=== PATIENT | male | born 1975 | race Caucasian/White ===

== ENCOUNTER 2020-08-22 09:58 | Day surgery (SDC) | payer BC ==
--- OUTSIDE RECORDS SUMMARY | 2020-08-22 10:12 | XMS REPORT | Summary of Care ---
:1975 Author Organization [facility] Address [address], [place] [address]- Encounter HQ Charmaine_jade(FIN) [id number] Date(s): 08/14/20 - 08/14/20 [facility] [address] [place] [address]- Discharge Disposition: Home or Self Care Attending Physician: Shimon Hurtado MD Referring Physician: Shimon Hurtado MD Vital Signs No data available for this section Problem List Condition Effective Dates Status Health Status Informant Chest pain(Confirmed) Active Diarrhea1 01/25/15 Active Hyperglycemia2 01/26/15 Active Hypertension(Confirmed) Active Nausea and vomiting3 01/25/15 Active Obesity(Confirmed) Active Borderline diabetes(Confirmed) Active 1Data migrated from [employer] on 03/19/15.2Data migrated from [employer] on 03/19/15.3Data migrated from [employer] on 03/19/15. Allergies, Adverse Reactions, Alerts No Known Medication Allergies Medications No data available for this section Results No data available for this section Immunizations No data available for this section Procedures No data available for this section Social History Social History Type Response Smoking Status Never smoker; Exposure to To bacco Smoke None; Cigarette Smoking Last 365 Days No; Reg Smoking Cessation Counseling No entered on: 07/04/20 Assessment and Plan No data available for this section
--- OUTSIDE RECORDS SUMMARY | 2020-08-22 10:12 | XMS REPORT | Summary of Care ---
:1975 Author Organization [facility] Cardiology [facility] Address [address] [place] [id number] Encounter HQ Liz(FIN) [id number] Date(s): 07/04/20 - 07/04/20 [facility] Cardiology [facility] [id number] [place] [phone]- [phone] Discharge Disposition: Home or Self Care Attending Physician: Shimon Hurtado MD Vital Signs Most recent to oldest [Reference Range]: 1 Height 170.18 cm (07/04/20 10:15 AM) Blood Pressure [90-140/60-90 mmHg] 138/86 mmHg (07/04/20 10:15 AM) Peripheral Pulse Rate [60-100 bpm] 72 bpm (07/04/20 10:15 AM) Weight 107.727 kg (07/04/20 10:15 AM) Body Mass Index 37.2 m2 (07/04/20 10:15 AM) Problem List Condition Effective Dates Status Health Status Informant Chest pain(Confirmed) Active Diarrhea1 01/25/15 Active Hyperglycemia2 01/26/15 Active Hypertension(Confirmed) Active Nausea and vomiting3 01/25/15 Active Obesity(Confirmed) Active Borderline diabetes(Confirmed) Active 1Data migrated from [employer] on 03/19/15.2Data migrated from [employer] on 03/19/15.3Data migrated from [employer] on 03/19/15. Allergies, Adverse Reactions, Alerts No Known Medication Allergies Medications amLODIPine-olmesartan 10 mg-40 mg oral tablet 1 tab, PO, Daily, # 30 tab, 0 Refill(s) Start Date: 07/04/20 Status: Orderedanastrozole 1 mg oral tablet 1 mg = 1 tab, PO, Daily, 0 Refill(s) Start Date: 07/04/20 Status: Orderedmontelukast 10 mg oral tablet 10 mg = 1 tab, PO, Daily, 0 Refill(s) Start Date: 07/04/20 Status: Orderedomeprazole 40 mg oral delayed release capsule 40 mg = 1 cap, PO, Daily, 0 Refill(s) Start Date: 07/04/20 Status: OrderedSynjardy 5 mg-1000 mg oral tablet 1 tab, PO, BID, 0 Refill(s) Start Date: 07/04/20 Status: Orderedtizanidine 4 mg oral tablet 2 mg = 0.5 tab, PO, Daily, 0 Refill(s) Start Date: 07/04/20 Status: Orderedzaleplon 10 mg oral capsule 10 mg = 1 cap, PO, PRN, 0 Refill(s) Start Date: 07/04/20 Status: Ordered Results No data available for this section [...]
--- OUTSIDE RECORDS SUMMARY | 2020-08-22 10:12 | XMS REPORT | Continuity of Care Document ---
:1975 Author Organization [employer] Care Team Providers Name Role Phone [employer] Unavailable Un available Problems Problem Status Onset Classification Date Comments Sourc e Date Reported R07.9 Active 07/23/20 [facility] Other chest pain 05/11/20 05/13/2020 [facility] Viral infection, 05/11/20 05/13/2020 [facility] unspecified 20 [facility] SOB AND CHEST Active 05/11/20 MH [facility] PAIN 20 [place] N28.1 - "CYST OF Active 08/29/20 [facility] KIDNEY, 15 [facility] ACQUIRED" Land HYPERGLYCEMIA Active 01/27/20 Condition 01/26/2015 15 Medical Group Hyperglycemia Active 01/27/20 Problem 08/16/2020 Data migrated H (disorder) 15 from [employer] on [facility], 03/19/15. [facility] [place] HELICOBACTER Active 01/26/20 Condition 01/26/2015 PYLORI INFECTION 15 Med ical Group DIARRHEA Active 01/26/20 Condition 01/26/2015 15 [facility] NAUSEA AND Active 01/26/20 Condition 01/26/2015 VOMITING 15 [facility] Group Diarrhea Active 01/26/20 Problem 08/16/2020 Data migrated (finding) [facility], 03/19/15. [facility] [place] Nausea and Active 01/26/20 Problem 08/16/2020 Data migrated vomiting 15 from [facility] (disorder) [facility] on Group , 03/19/15. [facility] [place],[facility] [place] CHEST PAIN, Inactive 11/16/19 Condition 01/26/2015 PLEURITIC 15 [facility] Group ABDOMINAL PAIN, Active 11/16/19 Condition 01/26/2015 LEFT UPPER 15 Medical QUADRANT Group URINARY TRACT Inactive 10/12/19 Condition 01/26/2015 INFECTION 15 [facility] Group Chest pain Active Problem 08/16/2020 (finding) Medical Group, [place] Hypertensive Active Problem 08/16/2020 disorder, Medical systemic Group, arterial [place] (disorder) [place] Obesity Active Problem 08/16/2020 (disorder) Medical Group, [place] Prediabetes Active Problem 08/16/2020 (finding) [facility], [place] Medications Medication Details Route Status Patient Ordering Order Source Instructions Provider Date anastrozole 1 mg 1 mg = 1 Active MH oral tablet tab, PO, 020 Medical Daily, 0 Group Refill(s) montelukast 10 mg 10 mg = 1 Active MH oral tablet tab, PO, 020 Medical Daily, 0 Group Refill(s) Amlodipine 10 MG 1 tab, PO, Active MH / Olmesartan Daily, # 30 020 Medical medoxomil 40 MG tab, 0 Group Oral Tablet Refill(s) tizanidine 4 mg 2 mg = 0.5 Active MH oral tablet tab, PO, 020 Medical Daily, 0 Group Refill(s) empagliflozin 5 1 tab, PO, Active MH MG / Metformin BID, 0 020 Medical hydrochloride Refill(s) Group 1000 MG Oral Tablet [Synjardy] omeprazole 40 mg 40 mg = 1 Active MH oral delayed cap, PO, 020 Medical release capsule Daily, 0 Group Refill(s) zaleplon 10 mg 10 mg = 1 Active MH oral capsule cap, PO, 020 Medical PRN, 0 Group Refill(s) Saline Flush 0.9% Notes: Inactive MH [place] (Same as: 020 Land BD Posiflush) PROTONIX 40 MG one po Active MH TBEC daily 015 Medical Group AMOXICILLIN 500 Two tabs PO No Longer MH MG TABS BID Active 015 Medical Group CLARITHROMYCIN one tab PO No Longer MH 500 MG TABS BID for 10 Active 015 Medical days Group ESOMEPRAZOLE one cap po Active MH STRONTIUM 49.3 MG qday 015 Medica l CPDR Group RABEPRAZOLE One tab PO No Longer MH SODIUM 20 MG TBEC BID Active 015 Medica l Group NAPROXEN 500 MG one tab PO Active MH TABS BID for 5 015 Medical days, then Group one tab PO BID prn pain. Take with food. AMLODIPINE 1 tab Active MH BESYLATE 10 MG everyday 015 Medical TABS Group BENAZEPRIL HCL 40 1 tab Active MH MG TABS everyday 015 Medical Group FARXIGA 10 MG 1 tab Active MH TABS everyday 015 Medical Group TIZANIDINE HCL 4 1 tablet Active MH MG TABS twice daily 015 Medical Group CENTRUM CHEW Active MH 015 Medical Group ZYRTEC ALLERGY 10 1 capsule Active MH MG CAPS daily as 015 Medical needed for Group allergies BACTRIM DS 1 tablet No Longer MH 800-160 MG TABS twice daily Active 015 Medi ellen for Group infection DIFLUCAN 150 MG 1 tablet x No Longer MH TABS 1 dose Active 015 Medical Group AMLODIPINE 1 tab Active MH BESYLATE 10 MG everyday 015 Medical TABS Group FARXIGA 10 MG 1 tab Active MH TABS everyday 015 Medical Group Allergies, Adverse Reactions, Alerts Substance Category Reaction Severity Reaction Status Date Comments S ource type Reported No Known Assertion Drug MH Medication allergy [place] Allergies [place] Immunizations No Data Provided for This Section Results Order Name Results Value Reference Date Interpretation Comments Jane rce Range CARDIAC Troponin-I <0.02 0.00 - 0.40 05/11 [facility] [place] ENZYMES [place] CARDIAC Total CK 678 12 - 191 05/11 MH [place] ENZYMES /2019 [place] CARDIAC Troponin-I <0.02 0.00 - 0.40 05/11 [facility] [place] ENZYMES [place] CARDIAC BNP 3 <=100 pg/mL 05/11 [facility] [place] ENZYMES 2020 [place] CHEM PANEL Glucose Lvl 122 70 - 99 05/11 [facility] [place] CHEM PANEL BUN 7 7 - 22 05/11 [facility] [place] CHEM PANEL Creatinine 0.88 0.50 - 1.40 05/11 MH Sug [facility] Lvl [place] CHEM PANEL Sodium Lvl 142 135 - 145 05/11 [facility] [place] 2020 [place] CHEM PANEL Potassium Lvl 3.8 3.5 - 5.1 05/11 MH [place] CHEM PANEL Chloride Lvl 105 95 - 109 05/11 MH [place] CHEM PANEL CO2 32 24 - 32 05/11 [facility] [place] CHEM PANEL Calcium Lvl 9.3 8.5 - 10.5 08/30 MH [place] /2020 [place] CHEM PANEL Total Protein 8.3 6.4 - 8.4 08/30 MH [place] /2020 [place] CHEM PANEL Albumin Lvl 4.7 3.5 - 5.0 08/30 MH [place] /2020 [place] CHEM PANEL ALT 69 0 - 65 08/30 [facility] [place] /2020 [place] CHEM PANEL AST 40 0 - 37 08/30 [facility] [place] /2020 [place] CHEM PANEL Alk Phos 70 39 - 136 08/30 [facility] [place] /2020 [place] CHEM PANEL Bili Total 1.0 0.2 - 1.3 08/30 [facility] [place] /2020 [place] CHEM PANEL AGAP 8.8 10.0 - 20.0 08/30 [facility] [place] /2020 [place] CHEM PANEL B/C Ratio 8 6 - 25 08/30 [facility] [place] /2020 [place] CHEM PANEL Globulin 3.6 2.7 - 4.2 08/30 [facility] [place] /2020 [place] CHEM PANEL A/G Ratio 1.3 0.7 - 1.6 08/30 [facility] [place] /2020 [place] CHEM PANEL eGFR 103 08/30 Result MH [place] /2020 Comment: The [place] eGFR is calculated using the CKD-EPI formula. In most young, healthy individuals the eGFR will be >90 mL/min/1.73m2 . The eGFR declines with age. An eGFR of 60-89 may be normal in some populations, particularly the elderly, for whom the CKD-EPI formula has not been extensively validated. Use of the eGFR is not recommended in the following populations:< br/>
[place]ita viduals with unstable creatinine concentration s, including patients and those with serious co-morbid conditions.<b r/>
Patie nts with extremes in muscle mass or diet.

The data above are obtained from the National Kidney Disease Education Program (NKDEP) which additionally recommends that when the eGFR is used in patients with extremes of body mass index for purposes of drug dosing, the eGFR should be multiplied by the estimated BMI. HEMATOLOGY WBC 6.2 3.7 - 10.4 08/30 [facility] [place] /2020 [place] HEMATOLOGY RBC 5.43 4.70 - 6.10 08/30 [facility] [place] /2020 [place] HEMATOLOGY Hgb 16.8 14.0 - 18.0 08/30 [facility] [place] /2020 [place] HEMATOLOGY Hct 49.7 42.0 - 54.0 08/30 [facility] [place] /2020 [place] HEMATOLOGY MCV 91.5 80.0 - 94.0 08/30 [facility] [place] /2020 [place] HEMATOLOGY MCH 30.8 27.0 - 31.0 08/30 [facility] [place] /2020 [place] HEMATOLOGY MCHC 33.7 32.0 - 36.0 08/30 [facility] [place] /2020 [place] HEMATOLOGY RDW 13.6 11.5 - 14.5 08/30 [facility] [place] /2020 [place] HEMATOLOGY Platelet 285 133 - 450 08/30 [facility] [place] /2020 [place] HEMATOLOGY MPV 7.6 7.4 - 10.4 08/30 [facility] [place] /2020 [place] HEMATOLOGY Segs 60.4 45.0 - 75.0 08/30 [facility] [place] /2020 [place] HEMATOLOGY Lymphocytes 30.0 20.0 - 40.0 08/30 MH [place] /2020 [place] HEMATOLOGY Monocytes 7.5 2.0 - 12.0 08/30 [facility] [place] /2020 [place] HEMATOLOGY Eosinophils 0.7 0.0 - 4.0 08/30 MH [place] /2020 [place] HEMATOLOGY Basophils 1.4 0.0 - 1.0 08/30 [facility] /2020 [place] HEMATOLOGY Neutrophils # 3.7 1.5 - 8.1 08/30 MH [place] /2020 [place] HEMATOLOGY Lymphocytes # 1.9 1.0 - 5.5 08/30 [facility] [place] /2020 [place] HEMATOLOGY Monocytes # 0.5 0.0 - 0.8 08/30 MH [place] /2020 [place] HEMATOLOGY Basophils # 0.1 0.0 - 0.2 08/30 MH [place] /2020 [place] Chemistry SODIUM 139 135 - 145 01/25 MH MEQ/L Medical Group Chemistry POTASSIUM 3.6 3.5 - 5.1 01/25 ME[facility] Medical Group Chemistry CREATININE 0.8 0.5 - 1.4 01/25 Medical Group Chemistry BUN 9 7 - 22 01/25 Medical Group Chemistry BUN/CREAT 11 6 - 25 01/25 Medical Group Chemistry ALBUMIN 4.1 3.5 - 5.0 01/25 Medical Group Chemistry CALCIUM 9.2 8.5 - 10.5 01/25 Medical Group Chemistry SGPT (ALT) 41 0 - 65 01/25 Medical Group Chemistry SGOT (AST) 16 0 - 37 01/25 Medical Group Chemistry ALK PHOS 87 39 - 136 01/25 Medical Group Chemistry HGBA1C 5.9 - 5.6 01/25 Medical Group Chemistry SODIUM 139 135 - 145 01/25 MEQ[facility] Group Chemistry POTASSIUM 3.6 3.5 - 5.1 01/25 MEQ/L Medical Group Chemistry CREATININE 0.8 0.5 - 1.4 01/25 Medical Group Chemistry BUN 9 7 - 22 01/25 Medical Group Chemistry BUN/CREAT 11 6 - 25 01/25 Medical Group Chemistry ALBUMIN 4.1 3.5 - 5.0 01/25 Medical Group Chemistry CALCIUM 9.2 8.5 - 10.5 01/25 Medical Group Chemistry SGPT (ALT) 41 0 - 65 01/25 Medical Group Chemistry SGOT (AST) 16 0 - 37 01/25 Medical Group Chemistry ALK PHOS 87 39 - 136 01/25 Medical Group Chemistry SODIUM 139 135 - 145 01/25 MEQ[facility]L [facility] Group Chemistry POTASSIUM 3.6 3.5 - 5.1 01/25 MEQ/L /2014 Medical Group Chemistry CREATININE 0.8 0.5 - 1.4 01/25 Medical Group Chemistry BUN 9 7 - 22 01/25 Medical Group Chemistry BUN/CREAT 11 6 - 25 01/25 Medical Group Chemistry ALBUMIN 4.1 3.5 - 5.0 01/25 Medical Group Hematology HGB 16.4 14.0 - 18.0 01/25 Medical Group Hematology HCT 49.2 42.0 - 54.0 01/25 Medical Group Hematology PLATELETS 280 133 - 450 01/25 K/CMM /2014 Medical Group Hematology HGB 16.4 14.0 - 18.0 01/25 Medical Group Hematology HCT 49.2 42.0 - 54.0 01/25 Medical Group Hematology PLATELETS 280 133 - 450 01/25 K/CMM /2014 Medical Group Urinalysis UA COLOR YELLOW 10/14 /2014 Medical Group Urinalysis EPI CELL UR NONE - 5 10/14 SEEN /2014 Medical Group Urinalysis BACTERIA URN NONE 10/14 SEEN /2014 Medical Group Urinalysis UA COLOR YELLOW 10/14 /2014 Medical Group Urinalysis EPI CELL UR NONE - 5 10/14 MH SEEN /2014 Medical Group Urinalysis BACTERIA URN NONE 10/14 SEEN /2014 Medical Group Urinalysis UA COLOR YELLOW 10/14 /2014 Medical Group Urinalysis EPI CELL UR NONE - 5 10/14 SEEN /2014 Medical Group Urinalysis BACTERIA URN NONE 10/14 SEEN /2014 Medical Group Pathology Reports No Data Provided for This Section Diagnostic Reports Report Value Date Source Chest 1view DX EXAM: XR CHEST 1 VIEW 05/11/2020 [facility] L and DATE: 05/11/2020 15:42 CDT INDICATION: - chest pain COMPARISON: 11/25/2014 TECHNIQUE: Frontal chest radiograph FINDINGS: The lungs are clear. The cardiomediastinal silhouette is normal. There is no acute bony abnormality. IMPRESSION: No acute abnormality Chest w contrast CT STUDY: CT chest with contrast. 09/02/2015 [facility] [place] COMPARISON: None. HISTORY: R91.8 Other nonspecific abnormal find ing of lung field. TECHNIQUE: Contiguous axial images of the chest were obtained after intravenous contrast administration. Sagittal and coronal reformats were performed. DLP: 2343 mGy-cm. Contrast dose: 100ml Omnipaque. FINDINGS: Please see same day CT abdomen and pelvis for be low diaphragm findings. Mild degenerative changes of the spine are seen. No suspicious osseous lesion is seen. No enlarged lymph nodes are seen in the chest. Small calcified left hilar lymph node is seen. The thyroid gland is normal. The thoracic aorta is normal in caliber.The heart and pericardium are within normal limits. The trachea and central bron chi are clear. 4 mm calcified granuloma in the posterior left lung base is seen. The lungs are otherwise clear. No suspicious lung nodule is seen. The pleura is normal. IMPRESSION: Unremarkable CT Chest with contrast. Abdomen w/wo IV STUDY: CT abdomen with and without contrast. [facility] [place] contrast CT COMPARISON: CT dated 02/18/2015 HISTORY: N28.1 Cyst of kidney, acquired. TECHNIQUE: Contiguous axial images of the abdomen were obtained before and after intravenous contrast administration including delayed images. Enteric contrast was given. Sagittal and coronal reformats were performed. DLP: 2343 mGy-cm. Contrast dose: 100ml Omnipaque. FINDINGS: Please see same day CT chest report for above di aphragm findings. Osseous structures: Unremarkable. Liver: Several too small to characterize hypodensities are seen in the liver measuring up to 6 mm, unchanged and probably represent cysts. Gallbladder: Normal. Spleen: Normal. Stable coars e calcification is seen superior to the spleen that may represent a sequelae granulomatous process. Adrenal glands: Normal. Kidneys: Several too small t o characterize hypodensities are seen in the right kidney measuring 8 mm, unchanged and probably represent cysts. A cyst is seen in the interpolar region of left kidney measu ring 2.4 x 2.2 cm, unchanged in size. Previously noted internal septation within this cyst is not well-seen on today's study. An 11 mm exophytic cyst is seen in the interpolar region of left ki dney, unchanged. Several too small to characterize hypodensities are seen in the left kidney measuring up to 10 mm, probable cysts. Pancreas: Normal. Gastrointestinal tract: Norm al stomach. Visualized small bowel and colon are normal. Adenopathy: None. Inflammatory changes: None. IMPRESSION: Bilateral renal cysts measur ing up to 2.4 cm. Continued surveillance with renal ultrasound is advised. Consultation Notes No Data Provided for This Section Discharge Summaries No Data Provided for This Section History and Physicals No Data Provided for This Section Vital Signs Vital Sign Value Date Comments Source Systolic (mm Hg) 138 07/04/2020 Medical Group Diastolic (mm Hg) 86 07/04/2020 Medical Group Heart Rate 72 07/04/2020 Medical Grou p Height 170.18 cm 07/04/2020 Medical Gr[facility] p Weight 107.727 07/04/2020 Medical Grou p BMI Calculated 37.2 07/04/2020 Medical Gr oup Respitory Rate 10 05/11/2020 [place] Systolic (mm Hg) 143 05/11/2020 [place] Diastolic (mm Hg) 97 05/11/2020 [facility] L and Temperature Oral (F) 98 F 05/11/2020 [place] Respitory Rate 13 05/11/2020 [place] Systolic (mm Hg) 143 05/11/2020 [facility] [place] Diastolic (mm Hg) 95 05/11/2020 [place] L and Respitory Rate 10 05/11/2020 [place] Systolic (mm Hg) 156 05/11/2020 [place] Diastolic (mm Hg) 105 05/11/2020 MH [facility] L and BMI Calculated 36.26 05/11/2020 [place] Height 170.18 cm 05/11/2020 [place] BMI Calculated 36.26 05/11/2020 [place] Weight 105 05/11/2020 [place] Heart Rate 93 05/11/2020 [place] Temperature Oral (F) 97.9 F 05/11/2020 [place] Weight 232 01/25/2015 [facility] Grou p Temperature Oral (F) 97.0 F 01/25/2015 Medi ellen Group Systolic (mm Hg) 122 01/25/2015 Medical Group Diastolic (mm Hg) 87 01/25/2015 Medical Group Heart Rate 98 01/25/2015 Medical Grou p Height 67 11/15/2014 Medical Grou p Weight 228 11/15/2014 Medical Grou p Temperature Oral (F) 97.4 F 11/15/2014 Medi ell[facility] Group Systolic (mm Hg) 144 11/15/2014 Medical Group Diastolic (mm Hg) 86 11/15/2014 Medical Group Heart Rate 86 11/15/2014 Medical Grou p Weight 232 10/12/2014 Medical Grou p Height 67 10/12/2014 Medical Grou p Temperature Oral (F) 97.8 F 10/12/2014 Medi ellen Group Systolic (mm Hg) 127 10/12/2014 Medical Group Diastolic (mm Hg) 76 10/12/2014 Medical Group Heart Rate 76 10/12/2014 Medical Grou p Encounters Location Location Encounter Encounter Reason Attending ADM DC Stat us Source Details Type Number For Provider Date Date Visit [facility] [id number] [facility] 10/12 10/12 [facility] [place] Visit [facility] [employer] [facility] Office [id number] [facility] 11/15 11/15 [facility] [place] Visit 92[facility] [employer] [facility] Lab Report [id number] [facility] 11/15 11/15 [place] 6450 [facility] Medical [employer] Group - [place] [facility] Outpt Diag [id number] Karon 11/25 11/26 [facility] [place] Cesar /[place] [facility] Lab Report [id number] [facility] 01/25 01/25 [place] 5[address] [facility] Medical [employer] [facility] Lab Report [id number] [place] 01/26 01/26 [place] [address] [place], /2014 Medical Medical [employer] [facility] [id number] Naif 02/18 02/19 MH [facility] [place] /[place] [facility] Outpt Diag [id number] Naif 09/02 09/03 MH [facility] Out[facility] [place] [facility] [place] [facility] Emergency [id number] Richard Won 05/11 05/11 [place] /2019 [place] Outpatient [id number] Shimon 07/04 [facility] [place] [facility] Outpatient [id number] Shimon 07/04 07/05 Cardiology [place] /2019 Medica l [place] Group [facility] Outpatient [id number] Shimon 08/14 08/15 [place] /2019 [place] Outpatient [id number] Shimon 02/13 [facility] [place] Procedures No Data Provided for This Section Assessment and Plan No Data Provided for This Section Plan of Care No Data Provided for This Section Social History Social History Date Source Social History TypeResponse 07/04/2020 [facility] Smoking Status Never smoker; Exposure to Tobacco Smoke None; Cigarette Smoking Last 365 Days No; Reg Smoking Cessation Counseling No entered on: 07/04/20 Social History TypeResponse 07/04/2020 [place] Anastacio d Smoking Status Never smoker; Exposure to Tobacco Smoke None; Cigarette Smoking Last 365 Days No; Reg Smoking Cessation Counseling No entered on: 07/04/20 No data available for this 09/03/2015 [facility] [place] section No data available for this 02/19/2015 [facility] [place] and section Family History No Data Provided for This Section Advance Directives No Data Provided for This Section Functional Status No Data Provided for This Section
--- OUTSIDE RECORDS SUMMARY | 2020-08-22 10:13 | XMS REPORT | Continuity of Care Document ---
:1975 Author Organization [facility] t Address [address] [place] [address] Care Team Providers Name Role Phone Genesis Attending Clinician Jack Mcdaniels MD Attending Clinician Adriane Malone Attending Clinician Doctor Unassigned, Name Attending Clinician Unavailable Raheel Lua Attending Clinician Jack Harrell Attending Clinician Problems Condition Condition Condition Status Onset Resolution Last Treating Co mments Source Name Details Category Date Date Treatment Clinician Date R07.9 Diagnosis Active 2019-092020-08-14 Mem oria 1-11 08:49:00 l R07.9 00:00: [place] 00 Active 07/23/2020 [facility] [place] SOB AND Diagnosis Active 2020-05-11 Me moria CHEST PAIN 8-30 17:10:00 l SOB AND 03:00: [place] CHEST PAIN 00 Active 05/11/2020 [facility] [place] N28.1 - Diagnosis Active 2014-092015-09-02 Me moria "CYST OF 2-18 08:51:00 l KIDNEY, N28.1 - 00:01: Bro n ACQUIRED" "CYST OF 00 KIDNEY, ACQUIRED" Active 08/29/2015 [facility] [place] HYPERGLYCE Condition Active 2015-01-26 Memoria ISAI 01-26 11:10:00 l 00:00: [place] HYPERGLYCE 00 ISAI Active 01/26/2015 Condition 5 [facility] Hyperglyce Problem Active 2020-08-16 M emoria isai 01-26 23:41:18 l (disorder) 00:00: Bro n Hyperglyce 00 isai (disorder) Active 01/26/2015 Problem 08/16/2020 Data migrated from [employer] on 03/19/15. [facility] [place] HELICOBACT Condition Active 2015-01-26 Memoria ER PYLORI - 11:10:00 l INFECTION 00:00: [place] HELICOBACT 00 ER PYLORI INFECTION Active 01/25/2015 Condition 5 [facility] DIARRHEA Condition Active 2015-01-26 M emoria 01-25 11:10:00 l DIARRHEA 00:00: Bro n 00 Active 01/25/2015 Condition [facility] NAUSEA AND Condition Active 2015-01-26 Memoria VOMITING 01-25 11:10:00 l NAUSEA 00:00: [place] AND 00 VOMITING Active 01/25/2015 Condition [facility] Diarrhea Problem Active 2020-08-16 Mem oria (finding) 01-25 23:41:18 l Diarrhea 00:00: Bro n (finding) 00 Active 01/25/2015 Problem 08/16/2020 Data migrated from [employer] on 03/19/15. [facility] [place] Nausea and Problem Active 2020-08-16 M emoria vomiting 01-25 23:41:18 l (disorder) Nausea 00:00: Herm douglas and 00 vomiting (disorder) Active 01/25/2015 Problem 08/16/2020 Data migrated from [employer] on 03/19/15. [facility] [place] ABDOMINAL Condition Active 2015-01-26 Memoria PAIN, LEFT 3-06 11:10:00 l UPPER 00:00: [place] QUADRANT ABDOMINAL 00 PAIN, LEFT UPPER QUADRANT Active 11/15/2014 Condition 5 [facility] Chest pain Problem Active 2020-08-16 M emoria (finding) 23:41:18 l Chest [place] pain (finding) Active Problem 08/16/2020 [facility] [place] Hypertensi Problem Active 2020-08-16 M emoria ve 23:41:18 l disorder, [place] systemic Hypertensi arterial ve (disorder) disorder, systemic arterial (disorder) Active Problem 08/16/2020 [facility] [place] Obesity Problem Active 2020-08-16 Nima geneva (disorder) 23:41:18 l Obesity [place] (disorder) Active Problem 08/16/2020 [facility] [place] Prediabete Problem Active 2020-08-16 M emoria s 23:41:18 l (finding) [place] Prediabete s (finding) Active Problem 08/16/2020 [facility] [place] Other Problem 2020-05-13 2020-05-13 M emoria chest pain 05-11 21:41:33 21:41:33 l Other 17:00: [place] chest pain 00 05/11/2020 05/13/2020 [place] Viral Problem 2020-05-13 2020-05-13 M emoria infection, 05-11 21:41:33 21:41:33 l unspecifie Viral 17:00: Judy nn d infection, 00 unspecifie d 05/11/2020 05/13/2020 [place] History of Past Illness Condition Condition Condition Status Onset Resolution Last Treating Co mments Source Name Details Category Date Date Treatment Clinician Date CHEST Condition Inactiv 2015-01-26 2015-01-26 Memoria PAIN, e 11-15 11:10:00 11:10:00 l PLEURITIC CHEST 00:00: Bro n PAIN, 00 PLEURITIC Inactive 11/15/2014 Condition [facility] URINARY Condition Inactiv 2015-01-26 2015-01-26 Memoria TRACT e 10-12 11:10:00 11:10:00 l INFECTION URINARY 00:00: Herm douglas TRACT 00 INFECTION Inactive 10/12/2014 Condition [facility] Allergies, Adverse Reactions, Alerts Allergy Allergy Status Severity Reaction(s) Onset Inactive Treating Comm ents Source Name Type Date Date Clinician No Known No Known Active Memori a Medicati Medicati l on on [place] Allergie Allergie s s Social History Social Habit Start Date Stop Date Quantity Comments Source Social History 2015-02-19 2015-02-19 [facility] 04:59:00 04:59:00 Smoking Status Start Date Stop Date Source Social History [facility] Medications Ordered Filled Start Stop Current Ordering Indication Dosage Frequency Signature Comments Components Source Medication Medication Date Date Medication? Clinician (SIG) Name Name anastrozole 2019-09 Yes 1 mg = 1 Me moria 1 mg oral 0-23 tab, PO, l tablet 15:16: Daily, 0 [place] 00 Refill(s) montelukast 2019-09 Yes 10 mg = 1 M emoria 10 mg oral 0-23 tab, PO, l tablet 15:16: Daily, 0 [place] 00 Refill(s) Amlodipine 2019-09 Yes 1 tab, PO, M emoria 10 MG / 0-23 Daily, # l Olmesartan 15:16: 30 tab, 0 He ann medoxomil 00 Refill(s) 40 MG Oral Tablet tizanidine 2019-09 Yes 2 mg = 0.5 M emoria 4 mg oral 0-23 tab, PO, l tablet 15:16: Daily, 0 [place] 00 Refill(s) empaglifloz 2019-09 Yes 1 tab, PO, Memoria in 5 MG / 0-23 BID, 0 l Metformin 15:16: Refill(s) Her pizano hydrochlori 00 de 1000 MG Oral Tablet [Synjardy] omeprazole 2019-09 Yes 40 mg = 1 Me moria 40 mg oral 0-23 cap, PO, l delayed 15:16: Daily, 0 Bro n release 00 Refill(s) capsule zaleplon 10 2019-09 Yes 10 mg = 1 M emoria mg oral 0-23 cap, PO, l capsule 15:16: PRN, 0 [place] 00 Refill(s) Saline No Notes: Memoria Flush 0.9% 8-30 (Same as: l 20:42: BD Posiflush) PROTONIX 40 Yes one po Nima geneva MG TBEC 5-16 daily l 00:00: AMOXICILLIN No Two tabs Me moria 500 MG TABS 3-09 PO BID l 00:00: CLARITHROMY No one tab PO Memoria BRITTANY 500 MG 3-09 BID for 10 l TABS 00:00: days ESOMEPRAZOL Yes one cap po Memoria E STRONTIUM 3-09 qday l 49.3 MG 00:00: CPDR 00 RABEPRAZOLE 2014-0 No One tab PO Memoria SODIUM 20 3-09 BID l MG TBEC 00:00: NAPROXEN 2014-0 Yes one tab PO Mem oria 500 MG TABS 3-06 BID for 5 l 00:00: days, then one tab PO BID prn pain. Take with food. AMLODIPINE 2014-0 Yes 1 tab Memori a BESYLATE 10 1-31 everyday l MG TABS 00:00: BENAZEPRIL 2014-0 Yes 1 tab Memori a HCL 40 MG 1-31 everyday l TABS 00:00: FARXIGA 10 0 Yes 1 tab Memori a MG TABS 1-31 everyday l 00:00: TIZANIDINE 2014-0 Yes 1 tablet Mem oria HCL 4 MG 1-31 twice l TABS 00:00: daily CENTRUM 0 Yes Memoria CHEW 1-31 l 00:00: ZYRTEC 0 Yes 1 capsule Memori a ALLERGY 10 1-31 daily as l MG CAPS 00:00: needed for allergies BACTRIM DS 0 No 1 tablet Mem oria 800-160 MG 1-31 twice l TABS 00:00: daily for infection DIFLUCAN 0 No 1 tablet x Mem oria 150 MG TABS 1-31 1 dose l 00:00: AMLODIPINE 2014-0 Yes 1 tab Memori a BESYLATE 10 1-31 everyday l MG TABS 00:00: FARXIGA 10 0 Yes 1 tab Memori a MG TABS 1-31 everyday l 00:00: Vital Signs Vital Name Observation Time Observation Value Comments Source Systolic (mm Hg) 2020-07-04 15:15:00 Nima riapapito [place] Diastolic (mm Hg) 2020-07-04 15:15:00 Mem orial [place] Heart Rate 2020-07-04 15:15:00 [facility] Height 2020-07-04 15:15:00 170.18 cm [facility] Weight 2020-07-04 15:15:00 [facility] BMI Calculated 2020-07-04 15:15:00 Durga granados [place] Respitory Rate 2020-05-11 23:30:00 Memori al [place] Systolic (mm Hg) 2020-05-11 23:30:00 Nima rial [place] Diastolic (mm Hg) 2020-05-11 23:30:00 Mem orial [place] Temperature Oral (F) 2020-05-11 23:30:00 98 F [facility] [place] Respitory Rate 2020-05-11 21:34:00 Memori al [place] Systolic (mm Hg) 2020-05-11 21:34:00 Nima rial [place] Diastolic (mm Hg) 2020-05-11 21:34:00 Mem orial [place] Respitory Rate 2020-05-11 21:00:00 Memori al [place] Systolic (mm Hg) 2020-05-11 21:00:00 Nima rial [place] Diastolic (mm Hg) 2020-05-11 21:00:00 Mem orial [place] BMI Calculated 2020-05-11 20:42:00 Memori al [place] Height 2020-05-11 20:31:00 170.18 cm [facility] [place] BMI Calculated 2020-05-11 20:31:00 Memori al [place] Weight 2020-05-11 20:31:00 [facility] [place] Heart Rate 2020-05-11 20:31:00 [facility] [place] Temperature Oral (F) 2020-05-11 20:31:00 97.9 F [facility] [place] Weight 2015-01-25 12:22:23 [facility] [place] Temperature Oral (F) 2015-01-25 12:22:23 97.0 F [facility] [place] Systolic (mm Hg) 2015-01-25 12:22:23 Nima rial [place] Diastolic (mm Hg) 2015-01-25 12:22:23 Mem orial [place] Heart Rate 2015-01-25 12:22:23 [facility] [place] Height 2014-11-15 19:14:40 [facility] [place] Weight 2014-11-15 19:14:40 [facility] [place] Temperature Oral (F) 2014-11-15 19:14:40 97.4 F [facility] [place] Systolic (mm Hg) 2014-11-15 19:14:40 Nima rial [place] Diastolic (mm Hg) 2014-11-15 19:14:40 Mem orial [place] Heart Rate 2014-11-15 19:14:40 [facility] [place] Weight 2014-10-12 23:04:20 [facility] [place] Height 2014-10-12 23:04:20 Cassius Rangel Temperature Oral (F) 2014-10-12 23:04:20 97.8 F Cassius Rangel Systolic (mm Hg) 2014-10-12 23:04:20 Nima Rangel Diastolic (mm Hg) 2014-10-12 23:04:20 Mem ant Rangel Heart Rate 2014-10-12 23:04:20 [facility] [place] Procedures This patient has no known procedures. Encounters Start End Encounter Admission Attending Care Care Encounter Source Date/Time Date/Time Type Type Clinicians Facility Department ID 2020-08-14 2020-08-14 Outpatient LILLIAN HurtadoSPapito [facility] [id number] 08:40:00 23:59:00 Shimon 2020-08-14 2020-08-14 Outpatient [facility] CAR [id number] [facility] 08:40:00 08:40:00 2020-07-04 2020-07-04 Outpatient LILLIAN HurtadoMG [facility] [id number] 10:00:00 23:59:59 Shimon 2020-05-20 2020-05-20 [place] [id number] 08:22:44 23:59:00 Encounter M [place] [id number] [place] [id number] [place] [id number] 2020-05-20 2020-05-20 [place] [id number] 08:00:00 08:21:00 Encounter [place] [id number] [place] [id number] [place] [id number] 2020-05-11 2020-05-11 Outpatient Jose Manuel Malone [facility] [id number] 15:28:48 18:43:00 Y 00 2020-05-11 2020-05-11 Emergency E [facility] [id number] [facility] 15:28:00 15:28:00 2020-04-23 2020-04-[id number] 07:58:11 23:59:00 Encounter M [place] [id number] [place] [id number] [place] [id number] 2020-04-23 2020-04-23 Orders Doctor CHITRA [id number] 00:00:00 00:00:00 Only Unassigned, FARHAT [id number] Roby [facility] [id number] 2015-09-02 2015-09-02 Outpatient Stoney, NICHOLAS [facility] [id number] 08:42:00 23:59:00 Naif 03 Raheel 2015-02-18 2015-02-18 Outpatient KRISTIN Lua [place] [id number] 07:32:00 23:59:00 Naif 02 [facility] 2014-11-25 2014-11-25 Outpatient KRISTIN Harrell [place] [id number] 13:42:00 23:59:00 Douglas M 00 Results Test Description Test Time Test Comments Results Result Comments Source CARDIAC ENZYMES 2020-05-11 <0.02 [facility] [place] 22:52:00 CARDIAC ENZYMES 2020-05-11 678 [facility] [place] 20:51:00 CARDIAC ENZYMES 2020-05-11 <0.02 [facility] [place] 20:51:00 CARDIAC ENZYMES 2020-05-11 3 [facility] [place] 20:51:00 CHEM PANEL 2020-05-11 122 [facility] Judy nn 20:51:00 CHEM PANEL 2020-05-11 7 [facility] [place] nn 20:51:00 CHEM PANEL 2020-05-11 0.88 [facility] Judy nn 20:51:00 CHEM PANEL 2020-05-11 142 [facility] [place] nn 20:51:00 CHEM PANEL 2020-05-11 3.8 [facility] Judy nn 20:51:00 CHEM PANEL 2020-05-11 105 [facility] [place] nn 20:51:00 CHEM PANEL 2020-05-11 32 [facility] [place] nn 20:51:00 CHEM PANEL 2020-05-11 9.3 [facility] [place] nn 20:51:00 CHEM PANEL 2020-05-11 8.3 [facility] [place] nn 20:51:00 CHEM PANEL 2020-05-11 4.7 [facility] [place] nn 20:51:00 CHEM PANEL 2020-05-11 69 [facility] [place] nn 20:51:00 CHEM PANEL 2020-05-11 40 [facility] Judy nn 20:51:00 CHEM PANEL 2020-05-11 70 [facility] [place] nn 20:51:00 CHEM PANEL 2020-05-11 1.0 [facility] Judy nn 20:51:00 CHEM PANEL 2020-05-11 8.8 [facility] Judy nn 20:51:00 CHEM PANEL 2020-05-11 20:51:00 Test Item Value Reference Range Interpretation Comme nts B/C Ratio (test code = B/C Ratio) 8 1 6-25 [facility] VUCPL2400-53-84 20:51:003.6[facility]annCHEM PANEL 2020-05-11 20:51:00 Test Item Value Reference Range Interpretation Comments A/G Ratio (test code = A/G Ratio) 1.3 1 0.7-1.6 [facility]CHE[facility] GRAUV1851-19-93 20:51:69604Akuwvndt HermannHEMATOLOGY 2020-05-11 20:51:006.2[facility] UhxrcesISRAHXIAGH9656-70-43 20:51:005.43[facility] LrahhltXGEVLUTAXJ4101-72-54 20:51:0016.8[facility] HxxfmumJDCFFWROUX3567-54-30 20:51:0049.7[facility] UmvcjnbKXGEYXJKNA8784-93-46 20:51:0091.5[facility] [place] RZXMTYAPUW4570-16-06 20:51:00 Test Item Value Reference Range Interpretation Comments MCH (test code = MCH) 30.8 pg 27.0-31.0 [facility] CccmnhkZNSZAPVEKI6000-32-69 20:51:0033.7[facility] HermannHEMATOLOGY 2020-05-11 20:51:0013.6[facility] YvzraikGIPXTDHRRB2720-25-41 20:51:46873Jkcpesja RqvmpbwMJUMRRASYX1026-96-07 20:51:007.6[facility] KcjetuoEXPHXEEOAZ7306-51-36 20:51:0060.4[facility] UwkdplhCIAJHMCBQV8357-10-12 20:51:0030.0[facility] [place] JSGAYGGJJU3873-10-46 20:51:007.5[facility] StdyjlpQVHEYRPQQH8272-59-07 20:51:000.7 Memorial AisihsbGBVOOADVFS9593-47-03 20:51:001.4[facility] HermannHEMATOLOGY 2020-05-11 20:51:003.7[facility] CutipwsPAFFBLVGLH2106-66-85 20:51:001.9[facility] KtmjfyzBDIVMFMNYM6207-36-84 20:51:000.5[facility] LywjwtnNEDNHEHOPI3531-70-62 20:51:000.1[facility] ZufrxymArpwmtowa2368-99-18 13:35:89130 MEQ/LMemorial [place] Tagxpytjm2289-36-24 13:35:003.6 MEQ/LMemorial HvymoxdNezjdqjal8347-50-81 13:35:000.8[facility] SolylgrIfsdcykws1098-24-84 13:35:009[facility] [place] Vbalbuqsl1430-23-72 13:35:00 Test Item Value Reference Range Interpretation Comments BUN/CREAT (test code = BUN/CREAT) 03-06 [facility] NukczzoPpcxhyjqw6354-03-68 13:35:004.1[facility] HermannChemistry 2015-01-25 13:35:009.2[facility] FvpixwaWgvmhzmkk8434-23-78 13:35:0041[facility] XmvmczyMosfwpkbp0517-35-49 13:35:0016[facility] YnqtktoIubhokbyc2554-96-09 13:35:0087[facility] ThveatfLakbljtkf8815-10-76 13:35:005.9[facility] [place] Ymgcibozp2707-45-22 13:35:19802 MEQ/LMemorial AtxxogpRddybrabi5665-89-06 13:35:003.6 MEQ/LMemorial JxyhyaqKfqfabsyk3351-86-36 13:35:000.8[facility] [place] Skfxkfseo9426-89-90 13:35:009[facility] PxuzrxsUvwfromwv6004-92-62 13:35:00 Test Item Value Reference Range Interpretation Comments BUN/CREAT (test code = BUN/CREAT) 03-06 [facility] EiphzpvUroybxvcy5979-99-70 13:35:004.1[facility] HermannChemistry 2015-01-25 13:35:009.2[facility] WvpovsoNrgjtsgku9538-97-83 13:35:0041[facility] ShyvidzAvwehtvai4598-69-54 13:35:0016[facility] ChbnzrqGbohfgbay3480-00-16 13:35:0087[facility] VtaxdcsPpzkjpdsd1785-47-24 13:35:86122 MEQ/LMem[facility] [place] Mfhjfqhzm5638-52-24 13:35:003.6 MEQ/LMemorial QdyskctHjvumabph1123-67-45 13:35:000.8[facility] AtzofzdNfirujgnd4618-62-12 13:35:009[facility] [place] Mhhgjiyae3978-95-92 13:35:00 Test Item Value Reference Range Interpretation Comments BUN/CREAT (test code = BUN/CREAT) 11 03-06 [facility] IikwtzdOekvffllr4962-42-31 13:35:004.1[facility] HermannHematology 2015-01-25 13:35:0016.4[facility] IfiewtzSxejrvhpxc2284-92-27 13:35:0049.2[facility] DucqavuZxnkglurjv3216-68-75 13:35:65546 K/CMMMemorial HermannHematology 2015-01-25 13:35:0016.4[facility] AhgokqjKuxwncprdh3639-56-52 13:35:0049.2[facility] AcuktcjEspkhmhzpg7945-45-10 13:35:27138 K/CMMMemorial HermannUrinalysis 2014-10-14 14:52:00YELLOWMemorial TczllflAtmicuppgo9809-41-03 14:52:00NONE SEEN Memorial GqscyldGcukfxihld5567-39-29 14:52:00NONE SEENMemorial HermannUrinalysis 2014-10-14 14:52:00YELLOWMemorial KizapdiSmvltgmtrx8446-87-12 14:52:00NONE SEEN Memorial WeqgfuuEgrymvbter1272-28-98 14:52:00NONE SEENMemorial HermannUrinalysis 2014-10-14 14:52:00YELLOWMemorial SutkwimAaxiakvzsy5920-98-62 14:52:00NONE SEEN Memorial GbzrgwpUtwnkpofkc5713-25-37 14:52:00NONE SEENMemorial [place]
[2020-08-22] MEDS ORDERED: OXYMETAZOLINE HCL 0.05% 15ML NAS ONE ×4 (10:27→12:58)
[2020-08-22] MEDS ORDERED: NA CHLORIDE 0.9% 1,000 ML ONE ×2 (10:27→14:19)
[2020-08-22] MEDS ORDERED: LIDOCAINE 2% MPF 5 ML VIAL ONE (11:27)
[2020-08-22] MEDS ORDERED: MIDAZOLAM HCL 2 MG/2 ML INJ ONE (11:27)
[2020-08-22] MEDS ORDERED: propofoL 200 MG/20 ML VIAL IV ONE (11:27)
[2020-08-22] MEDS ORDERED: ROCURONIUM 50 MG/5 ML VIAL IV ONE (11:27)
[2020-08-22] MEDS ORDERED: FENTANYL CITR 100 MCG/2 ML ONE (11:27)
[2020-08-22] MEDS ORDERED: dexAMETHasone 10 MG/ML VIAL ONE (11:27)
[2020-08-22] MEDS ORDERED: NA CHLORIDE 0.9% 500 ML ONE (12:58)
[2020-08-22] MEDS ORDERED: LIDOCAINE 1% W/EPI 1:100,000 MDV 50 ML VIAL ONE (12:58)
[2020-08-22] MEDS ORDERED: GLYCOPYRROLATE 0.2 MG/ML SYR ONE (13:25)
[2020-08-22] MEDS ORDERED: EPHEDRINE SULF 50 MG/ML VIAL ONE (13:31)
--- NOTE | 2020-08-22 14:31 | P.BOP ---
Preoperative diagnosis: septal deviation, turb hypertrophy, left jovany Postoperative diagnosis: same Primary procedure: septoplasty, left jovany resection, bilateral turb ablation/downfracture [facility] Teacher: NONE,NONE Estimated blood loss: 30ml Specimen: septal fragments Findings: abnormal left middle turbinate, right anterior dev with left spur Anesthesia: General Complications: None Implants: Villatoro splints Fluids & blood products: crystalloid 900ml Transferred to: Recovery Room Condition: Good
[2020-08-22] MEDS ORDERED: MORPHINE 10 MG/ML VIAL ONE (14:35)
[2020-08-22] MEDS ORDERED: ONDANSETRON 4 MG/2 ML VIAL ONE (15:17)
[2020-08-22] MEDS ORDERED: TRAMADOL HCL 50 MG TAB ONE (15:53)
[2020-08-22 15:54] VITALS: BP 139/89; TEMP 97.8; O2SAT 92
--- NOTE | 2020-08-22 22:53 | OP ---
Date of Procedure: 08/22/2020 Surgeon: Dilcia Blood MD Preoperative Diagnoses: Left jovany bullosa, bilateral turbinate hypertrophy, septal deviation, nasa l obstruction. Postoperative Diagnoses: Left jovany bullosa, bilateral turbinate hypertrophy, septal deviation, angie al obstruction. Procedures: Septoplasty, nasal endoscopy with left middle turbinate jovany resection and bilateral i nferior turbinate ablation and submucosal/intramural ablation and downfracture. Anesthesia: General. Complications: None. Implants: Bilateral Villatoro splints. Findings: Right anterior septal deviation, left posterior septal spur, abnormal shape of left middle turbinate. Description Of Procedure: The patient was brought to the operating room. He was placed under genera l anesthesia via oral endotracheal tube. The head of bed was turned 90 degrees. The nasal hairs wer e trimmed and the nasal cavity was packed with Afrin-soaked pledgets. After time for effect, a 0-deg ree endoscope was used to perform a nasal endoscopy and photo documentation of the left middle turbin ate was performed. The turbinate had an abnormal shape with a large floppy anterior portion and wide tawanna superior attachment consistent with jovany bullosa. The endoscopic scissors were used to remove the inferior aspect of the middle turbinate including the bulbous floppy anterior-inferior portion. After removal, the area was packed with Afrin-soaked pledgets and re-examined. The inferior turbinat e had a somewhat abnormal overall appearance, which after removal of the inferior portion appeared to be somewhat bifid with the lateral aspect attached to the lateral nasal wall quite anteriorly and ju st adjacent to the uncinate process. No additional dissection was made in this area to avoid damage or scarring to the infundibulum. Attention was then turned to the septum. The bilateral septum was injected with 1% lidocaine with epinephrine. A right hemitransfixion incision was made through the m ucosa near the mucocutaneous junction. A Phil elevator was used to dissect down to the cartilage a nd bilateral mucoperichondrial flaps were elevated bluntly. The cartilaginous portion of the septum appeared to deviate significantly into the right nasal cavity. During elevation of the left mucoperi chondrial flap, it appeared the patient had an old healed fracture of the cartilaginous septum, which was likely contributing to the deviation. The septal flaps were packed with Afrin-soaked pledgets t o aid in hemostasis. After time for effect, these were removed. The cartilaginous septum was isolat ed between the medium length nasal speculum. A careful measurement of the septum was made to ensure approximately 1.5 cm dorsal and caudal septal struts remained in place. A 15 blade scalpel was used to incise through the cartilage. The portions of the cartilage were then gently loosened using the C ottle elevator and removed using the Leandra. Additional inferior aspects of the cartilage were al so then elevated and removed. There was mild persistent right septal deviation within the remaining strut by it in order to avoid destabilization of the nasal tip. Additional cartilage resection was i ll-advised. The left concave aspect of the cartilage was scored superficially to release tension and aid in straightening, which was partially successful. The bony septum was then addressed. The Cott le elevator and long nasal speculum were used to ensure the mucosa was elevated completely off the le ft septal spur. The spur was then grasped with the Jeff rongeurs and carefully removed resulting i n good improvement of the left posterior nasal airway. Further assessment demonstrated overall signi ficant improvement of the bilateral nasal airway following manipulation of the bony and cartilaginous portions of the septum. The turbinates were then evaluated. The overall amount of soft tissue with in the turbinates was not felt to be severe and decision was made to perform an intramural or submuco stepan ablation rather than resection. The unprotected needlepoint Bovie electrocautery was used to cre ate channels and cauterized the soft tissues within the inferior turbinates. A Cotto elevator was then used to downfracture the inferior turbinates in order to optimize the nasal airway. The septal flaps were then approximated using a quilting suture and the hemitransfixion incision was closed usin g a simple running plain gut suture. Due to the work on the turbinates as well as the septal spur, d ecision was made to place Villatoro splints in order to avoid synechiae within the nasal cavity during th e healing. Bilateral Villatoro airway splints were placed and secured anterior to the septum using a sin gle 4-0 nylon suture. The nasal cavity and nasopharynx were then suctioned, and the patient was retu rned to care of Anesthesia for awakening and extubation in the operating room, which proceeded withou t difficulty. Complications: None. Disposition: The patient will be discharged home later today and follow up with Dr. Blood in 10 da ys for removal of splints and evaluation of healing. RALPH/DIOGO Voice ID: [id number] Report ID: [id number]
== END 2020-08-22 16:22 | disposition home or self-care (01) ==
LOC: OR 09:58
PROVIDERS: ATTEND Otolaryngology
PROC: 09BL8ZZ Excision of Nasal Turbinate, Via Natural or Artificial Opening Endoscopic (ICD-10-PCS; 2020-08-22)
PROC: 09SM0ZZ Reposition Nasal Septum, Open Approach (ICD-10-PCS; principal; 2020-08-22 11:45)
DX: J34.2 Deviated nasal septum (principal); J34.3 Hypertrophy of nasal turbinates; J34.89 Other specified disorders of nose and nasal sinuses; G47.33 Obstructive sleep apnea (adult) (pediatric); F17.210 Nicotine dependence, cigarettes, uncomplicated; I10 Essential (primary) hypertension; R73.03 Prediabetes; K21.9 Gastro-esophageal reflux disease without esophagitis; M33.90 Dermatopolymyositis, unspecified, organ involvement unspecified
CPT/HCPCS: 93005; 82947; 88304; 88311; 30520; 30130; 31240; J2704; J2250; J3010; J1100; J7040; J7030 ×2; J2405; 88305